=== PATIENT | female | born 1970 | race Caucasian/White ===

== ENCOUNTER → 2017-05-08 | Outpatient (CLI) | payer BC ==
[~2017-05-08] MED LIST: CEFD300C37 PO; FURO80TA77 PO; GADOXETATE DISODIUM 2.5 MMOL/10 ML ONE; LACT10SO28 PO; METR500T PO; OMEP-110 PO; PHYT5TAB2 PO; POTA10TA11 PO; SODI1TAB15 PO; SPIR100T2 PO
== END | disposition home or self-care (01) ==
LOC: RAD 13:34
PROVIDERS: ATTEND Specialist
DX: C22.0 Liver cell carcinoma (principal); R16.1 Splenomegaly, not elsewhere classified; K44.9 Diaphragmatic hernia without obstruction or gangrene
CPT/HCPCS: 74183; A9581

== ENCOUNTER 2019-05-24 14:57 | Emergency (ER) | payer BC ==
[~2019-05-24] VITALS: Ht 167.6 cm; Wt 78.1 kg
[2019-05-24 19:55] VITALS: BP 128/68
== END 2019-05-24 19:58 | disposition home or self-care (01) ==
LOC: ED 19:52
DX: D50.9 Iron deficiency anemia, unspecified (principal); F17.200 Nicotine dependence, unspecified, uncomplicated; Z87.19 Personal history of other diseases of the digestive system
CPT/HCPCS: 36415; 80048; 80076; 85025; 85610; 85730; 86850; 86900; 86923; 93005; 96372; 99284; J3420; P9016